=== PATIENT | male | born 1950 | race Caucasian/White ===

== ENCOUNTER 2025-03-28 04:59 | Emergency (ER) | payer MEDICARE ==
[2025-03-28 06:08] LABS: MEAN PLATELET VOLUME 9.7 fL (6.7-11.0); PLATELET COUNT,PLT 271 x10(3)uL (117-477); RED BLOOD CELL COUNT 2.93 x10(6)uL (3.90-5.90); RED CELL DISTRIBUTION WIDTH 14.3 % (12.4-15.0); WHITE BLOOD CELL COUNT,WBC 7.4 x10-3/uL (3.2-10.1)
[2025-03-28] MEDS: Iopamidol 755 Mg/ML 100 ML Bottle IV SCH (06:11)
[2025-03-28 06:19] LABS: A/G RATIO 0.5; ALANINE AMINOTRANSFERASE,ALT 104 U/L (12-36); ASPARTATE AMNIOTRANSFERASE,AST 87 IU/L (5-25); BILIRUBIN TOTAL 1.2 mg/dL (0.1-1.3); BLOOD UREA NITROGEN,BUN 52 mg/dL (7-18); CARBON DIOXIDE,CO2 25 mmol/L (21-32); CHLORIDE,CL 106 mmol/L (100-110); EST CRCL DRUG DOSING (CG) 23.47 mL/min; ESTIMATED GFR 32 mL/min (>60); GLUCOSE RANDOM 130 mg/dL (80-116); POTASSIUM,K 4.2 mmol/L (3.5-5.3); PROTEIN TOTAL,TP 6.9 g/dL (6.0-8.0); SODIUM,NA 140 mmol/L (135-145)
[2025-03-28 06:20] LABS: CREATININE 2.1 mg/dL (0.70-1.30); INR 1.25 (1.00-1.24); PTT,PARTIAL THROMBOPLSTIN TIME 38.7 SECONDS (24.4-33.2)
[2025-03-28 06:27] LABS: EOSINOPHILS PERCENT MAN 6 % (0-5); LYMPHOCYTES PERCENT MAN 9 % (13-37); MONOCYTES PERCENT MAN 2 % (4-12); SEG NEUTROPHILS PERCENT MAN 83 % (46-82)
[2025-03-28 07:42] LABS: BASE EXCESS VENOUS,POC -6 mmol/L (-2 - 3+); PCO2 VENOUS,POC 46 mmHg (41-51); PH VENOUS,POC 7.26 pH Units (7.32-7.43)
[2025-03-28 08:30] LABS: GLUCOSE,URINE NORMAL (NORMAL); OCCULT BLOOD,URINE NEGATIVE (NEGATIVE)
[2025-03-28 08:31] LABS: APPEARANCE,URINE CLEAR (CLEAR)
[2025-03-28 08:34] LABS: SQUAMOUS EPITHELIAL CELLS,UR RARE (NS,R,O)
== END 2025-03-28 09:10 | disposition home or self-care (01) ==
LOC: FB.ED 04:59
DX: S80.12XA Contusion of left lower leg, initial encounter (principal); I10 Essential (primary) hypertension; Z72.0 Tobacco use; Z79.01 Long term (current) use of anticoagulants; W19.XXXA Unspecified fall, initial encounter; Y92.009 Unspecified place in unspecified non-institutional (private) residence as the place of occurrence of the external cause
CPT/HCPCS: 36415; 70450; 71260; 72125; 73590; 74177; 80053; 81001; 83690; 84484; 85025; 85610; 85730; 99285; J7030; Q9967